=== PATIENT | male | born 1945 | race Caucasian/White ===

== ENCOUNTER 2016-10-12 10:08 | Inpatient (IN) | payer OTHER, MEDICARE ==
[~2016-10-12] VITALS: Ht 177.8 cm; Wt 77.2 kg
--- NOTE | 2016-10-12 13:25 | History and Physical ---
History & Physical Date of Service Oct 12, 2016. History & Physical H & P Dictated #[id number] Family Contact is [phone]
[2016-10-12] MEDS ORDERED: ONDANSETRON INJ 2 MG/ML 2 ML VIAL IV PRN (13:30)
[2016-10-12] MEDS ORDERED: ACETAMINOPHEN 325 MG TAB PO PRN (13:30)
--- NOTE | 2016-10-12 13:59 | HISTORY & PHYSICAL EXAMINATION ---
DATE OF ADMISSION: 10/12/2016 CHIEF COMPLAINT: My lung has collapsed. HISTORY OF PRESENT ILLNESS: This 71-year-old male who was transferred from [facility] at the request of Dr. Barrios of general surgery. The patient says that he has a partial collapse of his left lung. The patient says that the issue with his lung began approximately 2 weeks ago when he noted that he was more short of breath particularly with activity. He went to see Dr. Barrios, where the patient was found to have what he describes as a pneumothorax for which he had a chest tube placed. He said this was removed after approximately 24 hours. He followed up with Dr. Barrios 4 days ago and again there was concern about recurrent pneumothorax and the patient underwent what he describes as a thoracentesis and then the patient subsequently followed up with Dr. Barrios again today, where the patient underwent an x-ray that showed the patient had some fluid in the left pleural space with a small pneumothorax. For this reason, he was transferred to Dr. Connors to [facility] for thoracic surgery expertise. I visited with the patient at bedside and questioned him on a multitude of symptoms. There were no falls, head injuries, visual changes, tinnitus, vertigo, epistaxis or sore throat. He denies any neck pain. He says with activity he does not get chest pain. He does admit to some shortness of breath particularly with exertion after 50 yards of walking an incline. He denies any nausea, vomiting or diarrhea, but does note some issues with constipation. He says he did have a major abdominal surgery secondary to hernias with mesh implantation in July of 2016 and since that surgery, he has lost approximately 20 pounds. He denies any dysuria. He has no history of stroke or seizure. He denies anxiety or depression. He does have a history of DVT in the left lower extremity following a previous surgery. He was treated appropriately with anticoagulation and he also had an IVC filter in place. He no longer takes anticoagulation, but he does have an IVC filter in place. At the time of my exam, he is resting comfortably in bed. PAST MEDICAL HISTORY: 1. COPD. 2. Colon cancer. The patient says that he had a partial colectomy. He also had radiation therapy and chemotherapy, both of which concluded approximately 9 years ago. 3. History of left clavicle fracture that was treated conservatively. 4. History of right lower extremity DVT as noted above. PAST SURGICAL HISTORY: Includes: 1. Abdominal herniorrhaphy with mesh implantation in July of 2016. 2. Partial colectomy. 3. Most recent colonoscopy. The patient says that it was approximately 9 years ago and there were no signs of recurrent cancer. 4. History of liver lobe resection. 5. Left knee osteotomy. 6. Right cyst excision from his finger. 7. Eye cyst excision. 8. IVC filter placement. ALLERGIES: None. OUTPATIENT MEDICATIONS: Include Prilosec daily. SOCIAL HISTORY: The patient quit smoking 20 years ago, but did admit to smoking 20 years, less than 1 pack of cigarettes per day. He drinks alcohol only on weekends. FAMILY HISTORY: The patient says his mother had an unspecified type of skin cancer. REVIEW OF SYSTEMS: As described above. PHYSICAL EXAMINATION: GENERAL: The patient is alert. He is oriented x3. He is in no distress. HEENT: Head is atraumatic and normocephalic. Eyes: Pupils equal, round and reactive to light and accommodation. Extraocular motions are intact. Ears: Auditory acuity is grossly intact. Nose: Nasal patency was intact. Sinuses are nontender. Mouth is moist without exudates. NECK: Supple. There is no JVD. CARDIOVASCULAR: Revealed regular rate and rhythm. LUNGS: Clear to auscultation. There are no rales, rhonchi, wheezing or use of accessory muscles. ABDOMEN: Soft, nontender, and nondistended. EXTREMITIES: Revealed no cyanosis, clubbing, edema, or calf tenderness. NEUROLOGIC: Revealed cranial nerves II-XII are grossly intact. No focal deficits are noted. IMPRESSION: A 71-year-old male with recurrent hydropneumothorax. PLAN: The patient will be seen and evaluated by Dr. Connors as this is a recurrent problem. The patient will likely require surgical intervention. We will proceed by obtaining a CT scan of his chest to further delineate his thoracic cavity anatomy. Dr. Connors will evaluate the patient later today to determine the best course of surgical action. The patient denies any history of GERD, but nonetheless we will maintain him on proton pump inhibitor as he takes 1 at home. The patient is ambulatory, so for now will not use any chemical means of DVT prevention. We will place him on lovenox post-op. The patient will be a level 1 full code. MTDD
[2016-10-12 14:15] VITALS: BP 140/95; PULSE 104; TEMP 36.7; O2SAT 94; Ht 177.8 cm; Wt 77.2 kg
[2016-10-12] MEDS ORDERED: PATIENT'S ALLERGY INFO NEEDS ENTERED SCH (14:30)
--- NOTE | 2016-10-12 14:38 | DIAGNOSTIC IMAGING REPORT ---
CT SCAN OF THE CHEST WITHOUT IV CONTRAST CLINICAL HISTORY: Hydropneumothorax. COMPARISON STUDY: Chest x-ray dated 10/12/2016. TECHNIQUE: CT scan of the thorax was performed from the thoracic inlet to the upper abdomen. Images are reviewed in the axial, sagittal, and coronal planes. IV contrast was not administered for this examination as per the referring clinician. CT DOSE: 392.50 mGy.cm FINDINGS: Thyroid: Imaged portions of the thyroid gland are normal in size and attenuation. Thoracic aorta: There is mild atherosclerotic calcification of the thoracic aorta, which is normal in caliber and demonstrates standard 3-vessel arch anatomy. Heart: The heart is normal in size and without pericardial effusion. The coronary arteries are densely calcified. The pulmonary trunk is normal in caliber. Lungs and pleural spaces: Advanced emphysema is noted. The trachea and central airways are clear. There is a small left pleural effusion. No right pleural effusion is seen. A small left basilar pneumothorax is identified. This tracks anteriorly to the left apex. No right-sided pneumothorax is seen. There is no airspace consolidation typical for pneumonia. Bibasilar scarring and atelectasis are identified. Numerous small calcified granulomas are observed. There is subpleural reticulation seen throughout both lungs. Suture material and parenchymal scarring are suggested in the lingula. Air trapping is present both lung bases. Diffuse peribronchial thickening is observed. Mediastinum: There are scattered mediastinal lymph nodes. These not pathologically enlarged by size criteria. Calcified mediastinal lymph nodes are observed. Arabella: Not well assessed without IV contrast. Axillae: There is no axillary lymphadenopathy. Upper abdomen: There are postoperative changes from right hepatic lobe resection. There is compensatory hypertrophy of the left lobe. A 2.3 cm cyst is noted in the left lobe of liver on image #[id number]. The partially visualized kidneys demonstrate cortical atrophy. The visualized pancreas is atrophic. Scattered diverticula are noted in the partially imaged left colon. Skeletal structures: The skeletal structures are osteopenic. There is chronic posttraumatic deformity of the right clavicle. No lytic or blastic bony lesions are seen. IMPRESSION: 1. Advanced emphysema. 2. There is a small left basilar hydropneumothorax. The pneumothorax tracks anteriorly to the left apex. 3. There is no airspace consolidation typical for pneumonia. Diffuse peribronchial thickening suggests reactive airway disease. Clinical correlation will be required. 4. Numerous calcified granulomas are identified. 5. Suture material is suggested in the lingula. There is also evidence of right hepatic lobe resection. Correlation with the patient's surgical history will be required. 6. Additional changes as above. Electronically signed by: Kevin Herman M.D. 10/12/2016 2:37 PM Dictated Date/Time: 10/12/2016 2:29 PM
[2016-10-12 14:51] VITALS: BP 130/83; PULSE 95; TEMP 37; O2SAT 95
--- NOTE | 2016-10-12 16:03 | HISTORY & PHYSICAL EXAMINATION ---
DATE OF ADMISSION: 10/12/2016 REASON FOR ADMISSION: Recurrent left pneumothorax. HISTORY OF PRESENT ILLNESS: Mr. Arias is a 71-year-old male who has about a 29-hqds-vrme history of cigarette smoking who underwent an extensive repair of a ventral wall hernias at [place] in July 2016 and "suffered after that". He had an NG tube in for an ileus for about 2 weeks, was on oxygen. It is unclear to me whether he had simply a loss of domain in addition to his chronic obstructive pulmonary disease. He quit smoking many years ago. He states he can walk a mile, but walking an incline rapidly he will get out of breath. He had deep vein thrombosis of his left lower extremity following his operation and has IVC filter in place. The patient has a history of a colectomy for lung cancer and radiation therapy many years ago. The patient presented at [facility] with a left spontaneous pneumothorax and underwent chest tube insertion by Dr. Barrios. He responded this with no air leak and is removed only to return in about 10 days later with a left pneumothorax. Dr. Barrios performed an aspiration of this and then as the patient looks very good clinically asked him to come back to the Emergency Room today and he has a significant basilar left pneumothorax with some pleural fluid. I discussed this with Dr. Barrios and the patient was transferred up to [facility] for surgical intervention for this problem. In reviewing the patient's CT scan, he does have a loculated pneumothorax on the left with some pleural fluid. He also has significant left lower lobe of bullae which are large. He has no respiratory problems with this and actually is not on oxygen. He has good saturations. We are going to put him on oxygen, however. We had a long talk with the patient. We are going to proceed with a left thoracoscopy with the bleb resection and possible pleurectomy or talc pleurodesis tomorrow on 10/13/2016. The patient is agreeable. We discussed risks and benefits including prolonged air leak, lung injury, and other issues. For specific details of his history, please refer to Mr. Ferguson's H&P from earlier today. MTDD
[2016-10-12 23:10] VITALS: BP 129/79; PULSE 73; TEMP 36.4; O2SAT 95
[2016-10-13] VITALS (9 sets, daily range): BP systolic 100–138; BP diastolic 65–84; PULSE 59–102; TEMP 36.3–36.8; O2SAT 92–99
[2016-10-13] MEDS ORDERED: MIDAZOLAM HCL 1 MG/ML 2ML VIAL ONE (06:42)
[2016-10-13] MEDS ORDERED: FENTANYL CITRATE INJ 50 MCG/1 ML 2 ML VIAL ONE ×4 (06:42→10:10)
[2016-10-13] MEDS ORDERED: SODIUM CHLORIDE 0.9% PF 50 ML VIAL ONE (07:01)
[2016-10-13] MEDS ORDERED: BUPIVACAINE LIPOSOME 1/3% 266 MG/20 ML VIAL INFIL ONE (07:01)
--- NOTE | 2016-10-13 07:27 | History & Physical Bridge Note ---
H&P Re-Evaluation Bridge Note: I have examined the patient, reviewed the History & Physical and in the interval since the performance of the History & Physical I have noted the following changes of clinical significance: No changes noted
[2016-10-13] MEDS ORDERED: CEFAZOLIN IV 2,000 MG/60 ML D5W IV ONE (07:33)
[2016-10-13] MEDS ORDERED: LIDOCAINE HCL 2% 2 ML VIAL (20MG/ML) ONE (08:48)
[2016-10-13] MEDS ORDERED: ROCURONIUM BROMIDE 10 MG/ML 5 ML VIAL ONE (08:48)
[2016-10-13] MEDS ORDERED: PHENYLEPHRINE 100MCG/ML 5ML SYR ONE (08:48)
[2016-10-13] MEDS ORDERED: DEXAMETHASONE SOD INJ 4 MG/ML VIAL ONE (08:48)
[2016-10-13] MEDS ORDERED: PROPOFOL IV EMULSION 10 MG/ML 20 ML VIAL IV ONE (08:48)
[2016-10-13] MEDS: PANTOprazole SOD 40 MG TAB PO SCH (09:00)
[2016-10-13] MEDS ORDERED: FENTANYL CITRATE INJ 50 MCG/1 ML 2 ML VIAL IV PRN (09:15)
[2016-10-13] MEDS ORDERED: EpHEDrine SULFATE INJ 50 MG/ML AMP IV PRN (09:15)
[2016-10-13] MEDS ORDERED: HYDROmorphone INJ 1 MG/ML SYR IV PRN (09:15)
[2016-10-13] MEDS ORDERED: ONDANSETRON INJ 2 MG/ML 2 ML VIAL IV PRN ×3 (09:15→13:00)
[2016-10-13] MEDS ORDERED: PROMETHAZINE HCL INJ 6.25 MG in SODIUM CHLORIDE 0.9% 50ML 50 ML IV PRN (09:15)
[2016-10-13] MEDS ORDERED: ATROPINE SULFATE 0.1 MG/ML 5ML SYR IV PRN (09:15)
[2016-10-13] MEDS ORDERED: FLOSEAL HEMOSTATIC MATRIX 10ML TOP ONE (09:57)
[2016-10-13] MEDS ORDERED: D5W AND 1/2NSS 1,000 ML IV SCH (10:17)
[2016-10-13] MEDS ORDERED: ONDANSETRON INJ 2 MG/ML 2 ML VIAL ONE (10:34)
[2016-10-13] MEDS ORDERED: GLYCOPYRROLATE INJ 0.2 MG/ML VIAL ONE (10:34)
[2016-10-13] MEDS ORDERED: NEOSTIGMINE METHYLSULFATE 5 MG/5 ML SYR ONE (10:34)
--- NOTE | 2016-10-13 10:57 | DIAGNOSTIC IMAGING REPORT ---
CHEST ONE VIEW PORTABLE CLINICAL HISTORY: s/p bleb resection postoperative evaluation COMPARISON STUDY: 10/12/2016 FINDINGS: Status post left lower lung bleb resection. Left-sided chest tube. Atelectatic change of the mid lung regions bilaterally. Minimal left apical pneumothorax. Mild subcutaneous emphysematous change. IMPRESSION: Postoperative changes consistent with left basilar bleb resection. Midlung atelectatic change bilaterally. Very small left apical pneumothorax Electronically signed by: Trey Berry M.D. 10/13/2016 10:56 AM Dictated Date/Time: 10/13/2016 10:55 AM
--- NOTE | 2016-10-13 11:04 | OPERATIVE REPORT ---
DATE OF OPERATION: 10/13/2016 PREOPERATIVE DIAGNOSIS: Recurrent left pneumothorax. POSTOPERATIVE DIAGNOSES: 1. Recurrent left pneumothorax. 2. Marked bullous disease, left lower lobe. PROCEDURE: 1. Left thoracoscopy with lysis of adhesions. 2. Left lower lobe bullectomy x2. 3. Left upper lobe bullectomy x1 with repair of air leak. SURGEON: Dr. Connors. ASSISTANT MERCHANDISER: FLORENCIO Sarmiento. ANESTHESIA: General anesthesia with endotracheal intubation using double-lumen tube. SPECIFICS OF PROCEDURE: This is a very nice 71-year-old male who has a remote history of cigarette smoking, presented with a left pneumothorax, had a chest tube placed by Dr. Barrios done at [facility]. Chest tube was removed when there was no air leak, and the patient returned in less than a week with a recurrent left pneumothorax. This was aspirated as the patient had minimal symptoms and then Dr. Barrios saw him back in the Emergency Room yesterday at [facility]. He had persistent pneumothorax and he asked if I would evaluate him for possible thoracoscopy. The patient was transferred to my service yesterday. We had a long discussion about this. I did check a CT scan when he got here. He has some pleural fluid, has a large bulla. For this reason, we elected to proceed with a thoracoscopy with bullectomy. On 10/13/2016, the patient underwent an uncomplicated left thoracoscopy. There were some adhesions which were taken down meticulously. There were 2 large bullae on the left lower lobe, which were excised using reinforced MYNOR staplers. There was no air leak at these areas. There was also a bulla medially on the upper lobe, which was small and I excised this. There was an air leak and I repaired this by stapling it in place and this appeared to control the air leak, he had a very tiny one at the end of the case. I really did not see another air leak when I was inspecting all staple lines in the lung during the case. I used an Exparel block. He tolerated it well with negligible blood loss. PROCEDURE: The patient brought to the operating room and laid in supine position. General anesthesia induced and endotracheal intubation performed with a double-lumen tube. The patient was placed in right lateral decubitus position. Left chest was prepped and draped in the usual sterile fashion. After appropriate timeout had been called, prophylactic antibiotic had been given, I made a 10 mm incision one interspace below the scapular tip and anterior, a centimeter or so. A 5 mm scope was placed, it could be seen there were some adhesions but not in the area that we went in. Switched this over to a 12 mm trocar. I then placed 2 other trocars, one in about the 7th interspace in anterior line, another one about the 4th interspace in the mid axillary line. Using these, we then used retraction using a Harmonic scalpel, I took the adhesions down in the medial left upper lobe as well as the lateral left upper lobe. This was done without difficulty. We visualized the phrenic nerve. I took care to ensure there were no injuries to this. We really got into no bleeding. The bullae were huge and were on the lower lobe medially and laterally. There were 2 large bullae and these were stapled off with Endo-MYNOR staplers which were reinforced. After excising, these looked quite good and there was really no leaking from these suture staple lines. There was a small bulla in the medial left upper lobe which was excised. There was leaking with this. I had to re-staple along the staple line with a reinforced staple, but then it did not really appear that we had any air leak. 266 mg of Exparel mixed with 40 mL, so there was 60 mL total of solution. This was then injected from the 2nd to the 11th rib above the rib and put about 5 mL in each interspace. There was really no significant bleeding. I placed a chest tube in the anteroinferior thoracoscopy port and directed toward the apex and sutured in place with heavy silk suture. The muscle layers in all 3 ports were closed with heavy Vicryl suture and then 4-0 Monocryl was used to close these incisions. He tolerated it quite well. I attest to the content of the Intraoperative Record and any orders documented therein. Any exceptio ns are noted below.
--- NOTE | 2016-10-13 11:13 | Anesthesiology Progress Note ---
Anesthesia Post Op Note Date & Time Oct 13, 2016 at 11:13 Vital Signs Pain Intensity: 0 Vital Signs Past 12 Hours Date Time Temp Pulse Resp B/P Pulse Ox O2 Delivery O2 Flow Rate FiO2 10/13/16 11:10 76 22 114/80 98 Nasal Cannula 2 10/13/16 11:00 36.1 77 20 115/73 97 Nasal Cannula 2 10/13/16 10:50 75 16 111/72 100 Mask 10 10/13/16 10:40 78 16 122/78 100 Mask 10 10/13/16 10:30 36.0 84 14 125/82 98 Mask 10 10/13/16 07:11 36.5 79 20 123/98 96 10/13/16 06:51 36.6 68 16 138/84 94 Room Air 10/12/16 23:45 Room Air Notes Mental Status: alert / awake / arousable, participated in evaluation Pt Amnestic to Procedure: Yes Nausea / Vomiting: adequately controlled Pain: adequately controlled Airway Patency, RR, SpO2: stable & adequate BP & HR: stable & adequate Hydration State: stable & adequate Anesthetic Complications: no major complications apparent
[2016-10-13] MEDS: MoRPHine SULFATE 2 MG/ML CARP IV PRN ×4 (12:09→23:40)
[2016-10-13] MEDS: ACETAMINOPHEN IV 1,000 MG in EMPTY BAG 0 ML IV SCH ×2 (12:09→20:21)
--- NOTE | 2016-10-13 12:37 | Progress Note ---
Progress Note Date of Service Oct 13, 2016. Progress Note I was called to see patient on floor after transfer from PACU for L eye pain. On questioning the patient he claims that his eye is sore and he feels a foreign body sensation. However, on further questioning, he says that this started 2-3 days ago and is unchanged from preop. He has had no other anesthetics during this admission. Eyes were carefully clear and taped during the operation. Exam was unremarkable showing normal pupil, good mobility in the eye, no visible foreign body, and no conjunctival injection. While this could certainly be a corneal abrasion, the time course rules out his anesthetic today as the culprit. If the primary team feels this to be a corneal abrasion, appropriate treatment would consist of antibiotic ( erythromycin) ointment and a topical NSAID such as ketorolac can be considered. Local anesthetic drops can hinder healing and is not typically recommended. If there is any question regarding the diagnosis or assistance is needed on management, I would recommend an ophthalmology consultation.
[2016-10-13] MEDS: KETOROLAC TROMETHAMINE 30 MG/ML VIAL IV PRN (12:55)
--- NOTE | 2016-10-13 13:30 | Progress Note ---
Progress Note Date of Service Oct 13, 2016. Progress Note Called by RN that pt. complained of left eye pain. Anesthesia as ked to see for possible corneal abrasion (see separate note). Pt. seen at bedside. He notes that he feels as though he has an eyelash in his eye. He notes discomfort and burning and was worse when he awoke from surgery. Upon further questioning, he notes this has been present x 3 days. He denies rubbing or scratching his eye prior to the discomfort beginning. He also denies any situations where any foreign bodies could have cause this problem. He denies any diplopia, blurred vision, floaters, or visual loss. He denies any drainage. He has used OTC eye drops that have provided some relief. On exam his left eye is not red. No conjunctival injection noted. No obvious foreign bodies identified. There is no tearing or drainage. PERRLA, EOM intact. No nystagmus. Clinically this appears consistent with corneal abrasion. Will treat with erythromycin eye drops 5 x daily and monitor.
[2016-10-13] MEDS: METOCLOPRAMIDE HCL INJ 5 MG/ML 2 ML VIAL IV. SCH ×2 (14:19→21:36)
[2016-10-13] MEDS: CEFAZOLIN IV 2,000 MG in DEXTROSE 5% 50ML 100 ML IV SCH ×2 (15:25→23:39)
[2016-10-13] MEDS: TETRACAINE HCL 0.5% OP SOLN 15 ML BTL OP SCH (15:25)
[2016-10-13] MEDS: OXYCODONE HCL IR 5 MG TAB (IMMEDIATE RELEASE) PO PRN (18:40)
[2016-10-13] MEDS: DOCUSATE SODIUM 100 MG CAP PO SCH (20:22)
[2016-10-14] VITALS (10 sets, daily range): BP systolic 108–146; BP diastolic 70–87; PULSE 65–107; TEMP 36.4–37.1; O2SAT 68–96
[2016-10-14] MEDS: MoRPHine SULFATE 2 MG/ML CARP IV PRN ×10 (03:22→19:39)
[2016-10-14] MEDS: ACETAMINOPHEN IV 1,000 MG in EMPTY BAG 0 ML IV SCH ×2 (04:13→11:40)
[2016-10-14] MEDS: METOCLOPRAMIDE HCL INJ 5 MG/ML 2 ML VIAL IV. SCH (05:41)
--- NOTE | 2016-10-14 07:21 | DIAGNOSTIC IMAGING REPORT ---
CHEST ONE VIEW PORTABLE CLINICAL HISTORY: s/p bleb resection postoperative evaluation COMPARISON STUDY: 10/03/2016 FINDINGS: Expected postoperative changes. Unchanging position of the left hemithoracic chest tube. Subcutaneous emphysema minimally progressive. Small left apical pneumothorax unchanged. Basilar and right midlung infiltrative changes and/or atelectatic changes similar. IMPRESSION: Stable postoperative change. Small residual left apical pneumothorax. Subcutaneous emphysema slightly progressive Electronically signed by: Trey Berry M.D. 10/14/2016 7:20 AM Dictated Date/Time: 10/14/2016 7:18 AM
--- NOTE | 2016-10-14 08:08 | Anesthesiology Progress Note ---
Anesthesia Post Op Note Date & Time Oct 14, 2016 at 08:07 Vital Signs Pain Intensity: 0.0 Vital Signs Past 12 Hours Date Time Temp Pulse Resp B/P Pulse Ox O2 Delivery O2 Flow Rate FiO2 10/14/16 07:56 Room Air 10/14/16 03:20 94 Nasal Cannula 2.0 10/14/16 03:20 36.5 81 18 124/78 85 Room Air 10/13/16 23:30 Room Air 10/13/16 23:05 36.7 59 16 109/65 92 Room Air Notes Mental Status: alert / awake / arousable, participated in evaluation Pt Amnestic to Procedure: Yes Nausea / Vomiting: adequately controlled Pain: adequately controlled Airway Patency, RR, SpO2: stable & adequate BP & HR: stable & adequate Hydration State: stable & adequate Anesthetic Complications: no major complications apparent
[2016-10-14] MEDS: DOCUSATE SODIUM 100 MG CAP PO SCH ×2 (08:54→20:45)
[2016-10-14] MEDS: TETRACAINE HCL 0.5% OP SOLN 15 ML BTL OP SCH (08:54)
[2016-10-14] MEDS: PANTOprazole SOD 40 MG TAB PO SCH (08:54)
[2016-10-14] MEDS: OXYCODONE HCL IR 5 MG TAB (IMMEDIATE RELEASE) PO PRN ×2 (08:56→23:48)
[2016-10-14 09:34] LABS: PROTHROMBIN TIME (PATIENT) 11.1 SECONDS (9.0-12.0)
--- NOTE | 2016-10-14 10:23 | Anesthesiology Progress Note ---
Anesthesia Post Op Note Date & Time Oct 14, 2016 at 10:23 Vital Signs Vital Signs Past 12 Hours Date Time Temp Pulse Resp B/P Pulse Ox O2 Delivery O2 Flow Rate FiO2 10/14/16 09:16 96 Room Air 10/14/16 08:02 36.5 66 26 146/86 96 Room Air 10/14/16 07:56 Room Air 10/14/16 07:35 36.4 65 24 122/74 95 Nasal Cannula 2.0 10/14/16 03:20 94 Nasal Cannula 2.0 10/14/16 03:20 36.5 81 18 124/78 85 Room Air 10/13/16 23:30 Room Air 10/13/16 23:05 36.7 59 16 109/65 92 Room Air Notes Mental Status: alert / awake / arousable, participated in evaluation Pt Amnestic to Procedure: Yes Nausea / Vomiting: adequately controlled Pain: adequately controlled Airway Patency, RR, SpO2: stable & adequate BP & HR: stable & adequate Hydration State: stable & adequate Anesthetic Complications: no major complications apparent
[2016-10-14] MEDS: ENOXAPARIN 40 MG/0.4 ML SYR SQ SCH (11:23)
--- NOTE | 2016-10-14 11:53 | SURGERY PROGRESS NOTE ---
DATE: 10/14/2016 Mr. Arias was seen today on 10/14/2016, 1 day after I did a thoracoscopic bleb resection. I really do not see an air leak on him today. His chest x-ray today I thought looked fine, obviously that his bulla had been resected. He is on room air with a saturation of 96% this morning. I have instructed him how important it is for him to walk, breathe, use incentive spirometer and cough. I will probably remove his chest tube and let him go home tomorrow.
[2016-10-14] MEDS ORDERED: ACETAMINOPHEN 325 MG TAB PO PRN (12:30)
[2016-10-14] MEDS: KETOROLAC TROMETHAMINE 30 MG/ML VIAL IV PRN (21:21)
[2016-10-15 03:22] VITALS: PULSE 86; O2SAT 96
[2016-10-15] MEDS: OXYCODONE HCL IR 5 MG TAB (IMMEDIATE RELEASE) PO PRN (05:43)
[2016-10-15] MEDS: KETOROLAC TROMETHAMINE 30 MG/ML VIAL IV PRN (06:29)
[2016-10-15 06:43] VITALS: O2SAT 92
--- NOTE | 2016-10-15 07:14 | DIAGNOSTIC IMAGING REPORT ---
CHEST ONE VIEW PORTABLE CLINICAL HISTORY: S/P BLEB RESECTION postoperative evaluation COMPARISON STUDY: 10/14/2016 FINDINGS: Stable postoperative changes left hemithorax. Left-sided chest tube unchanged in position. Slight decrease in volume of ovarian small left apical pneumothorax. Maximum pleural separation currently is a 1.1 cm Subcutaneous emphysema similar IMPRESSION: Stable to slightly improved left hemithoracic postoperative change Electronically signed by: Trey Berry M.D. 10/15/2016 7:13 AM Dictated Date/Time: 10/15/2016 7:11 AM
[2016-10-15 07:15] VITALS: BP 122/81; PULSE 82; TEMP 36.8; O2SAT 92
[2016-10-15] MEDS ORDERED: OXYC-57 PO (08:02)
[2016-10-15] MEDS ORDERED: CLC100 PO (08:02)
--- NOTE | 2016-10-15 08:05 | Discharge Instructions ---
Discharge Instructions Date of Service Oct 15, 2016. Admission Reason for Admission: Pneumothorax Discharge Discharge Diagnosis / Problem: Pneumothorax Discharge Goals Goal(s): Decrease discomfort, Improve function, Learn about illness Activity Recommendations Activity Limitations: as noted below Shower/Bathe: may shower/bathe in 3 days 1. Do not fly until cleared to do so by Dr. Connors. 2. Do not drive if taking percocet. 3. You may remove dressing in 3 days and shower thereafter. No tube baths. . Instructions / Follow-Up Instructions / Follow-Up Office appointment with Dr. Connors in 1 week. Office will call with date and time of appointment. You will need a chest x-ray prior to appointment. Current Hospital Diet Patient's current hospital diet: Regular Diet Discharge Diet Recommended Diet: Regular Diet Procedures Procedures Performed: Left Thoracoscopy with Bullectomy Resection Pending Studies Studies pending at discharge: no Medical Emergencies . Who to Call and When: Medical Emergencies: If at any time you feel your situation is an emergency, please call 911 immediately. . Non-Emergent Contact Non-Emergency issues call your: Surgeon Call Non-Emergent contact if: you have a fever, your pain is not controlled, wound has increased drainage . "Provider Documentation" section prepared by Roberto Ferguson. VTE Core Measure Inpt VTE Proph given/why not?: Unfractionated heparin SQ
--- NOTE | 2016-10-15 08:14 | DIAGNOSTIC IMAGING REPORT ---
CHEST ONE VIEW PORTABLE CLINICAL HISTORY: chest tube removal postoperative evaluation COMPARISON STUDY: 10/15/2016 at 6:54 AM FINDINGS: Interval removal left-sided chest tube. Minimal residual left apical pneumothorax with a pleural separation of no more than 5 mm. Slight increased atelectatic change left base. Subcutaneous emphysema stable. Right lung is clear. IMPRESSION: Stable evaluation of the chest status post left-sided chest tube removal. Minimal residual left apical pneumothorax diminished in prominence from the prior study. Electronically signed by: Trey Berry M.D. 10/15/2016 8:12 AM Dictated Date/Time: 10/15/2016 8:11 AM
[2016-10-15] MEDS: DOCUSATE SODIUM 100 MG CAP PO SCH (09:28)
[2016-10-15] MEDS: TETRACAINE HCL 0.5% OP SOLN 15 ML BTL OP SCH (09:28)
[2016-10-15] MEDS: PANTOprazole SOD 40 MG TAB PO SCH (09:28)
[2016-10-15] MEDS: ENOXAPARIN 40 MG/0.4 ML SYR SQ SCH (09:29)
[2016-10-15 09:52] VITALS: BP 122/81; PULSE 82; TEMP 36.8; O2SAT 92
--- NOTE | 2016-10-23 11:56 | DISCHARGE SUMMARY ---
DISCHARGE DIAGNOSES: 1. Recurrent spontaneous right pneumothorax. 2. History of ventral wall hernias. 3. History of cigarette smoking. 4. History of deep vein thrombosis. 5. History of lung cancer. HOSPITAL COURSE: Mr. Arias is a 71-year-old male who underwent extensive repair of ventral hernias July 2016, had an NG tube and ileus, was on oxygen and eventually got over this up to the point where he could walk a mile. The patient developed acute shortness of breath, left chest pain and underwent insertion of a chest tube by Dr. Sophie peterson at [facility]. He was able to get the chest tube out in a timely fashion, discharge him home only to have him return 10 days later with recurrent left pneumothorax. Dr. Barrios asked if we would evaluate him for possible thoracoscopy. On 10/12/2016 the patient was transferred to my service. We got a CT scan which showed he did have some left pleural fluid, a loculated pneumothorax. He also had some large bulla. On 10/13/2016 I took the patient to the operating room and did an uncomplicated left thoracoscopy, took down some adhesions and wedged out 2 large bullae of the left lower lobe and a smaller one of the right upper lobe. He really had very little in the way of an air leak after surgery and tolerated it quite well. The second postop day on 10/15/2016 we removed his chest tube and discharged him home. Final pathology shows these to be benign blebs. He looks quite good from that perspective. I discharged him home, his incisions were clean. Discharge instructions were given. We will see him back next week in the office.
== END 2016-10-15 11:00 | disposition home or self-care (01) | DRG 164 ==
LOC: C.MSW 12:48
PROVIDERS: ADMIT Surgery; ATTEND Surgery
PROC: 0BBJ4ZZ Excision of Left Lower Lung Lobe, Percutaneous Endoscopic Approach (ICD-10-PCS; principal; 2016-10-13 07:30)
PROC: 0BQG4ZZ Repair Left Upper Lung Lobe, Percutaneous Endoscopic Approach (ICD-10-PCS; principal; 2016-10-13 07:30)
PROC: 0BBG4ZZ Excision of Left Upper Lung Lobe, Percutaneous Endoscopic Approach (ICD-10-PCS; principal; 2016-10-13 07:30)
PROC: 0BNG4ZZ Release Left Upper Lung Lobe, Percutaneous Endoscopic Approach (ICD-10-PCS; principal; 2016-10-13 07:30)
DX: J93.9 Pneumothorax, unspecified (principal); J94.8 Other specified pleural conditions; J43.9 Emphysema, unspecified; S05.02XA Injury of conjunctiva and corneal abrasion without foreign body, left eye, initial encounter; X58.XXXA Exposure to other specified factors, initial encounter; I25.10 Atherosclerotic heart disease of native coronary artery without angina pectoris; Z87.891 Personal history of nicotine dependence; Z86.718 Personal history of other venous thrombosis and embolism; Z79.899 Other long term (current) drug therapy

== ENCOUNTER → 2016-10-22 | Outpatient (CLI) | payer OTHER, MEDICARE ==
[~2016-10-22] MED LIST: CLC100 PO; HYDR-5688 PO; OXYC-57 PO
--- NOTE | 2016-10-22 13:12 | DIAGNOSTIC IMAGING REPORT ---
CHEST 2 VIEWS ROUTINE HISTORY: J93.9 [id number] COMPARISON: Chest 10/15/2016. FINDINGS: No change in the tiny left apical pneumothorax. Suture material within the left lung apex. Small left pleural effusion and left basilar densities have improved. Improvement in the left chest wall subcutaneous emphysema. Punctate calcified granuloma within the right lung. The heart is normal in size. Old right clavicle fracture. IMPRESSION: 1. Tiny left pneumothorax persists. 2. Small left pleural effusion and left basilar densities have improved. Electronically signed by: Corey Cartagena M.D. 10/22/2016 1:11 PM Dictated Date/Time: 10/22/2016 1:09 PM
== END | disposition home or self-care (01) ==
LOC: C.RAD1850 12:58
PROVIDERS: ATTEND Surgery
DX: J93.9 Pneumothorax, unspecified (principal)

== ENCOUNTER 2016-11-05 10:06 | Emergency (ER) | payer OTHER, MEDICARE ==
[~2016-11-05] VITALS: Ht 177.8 cm; Wt 80.0 kg
[~2016-11-05 10:06] MED LIST changes: -HYDR-5688 PO
[2016-11-05 10:32] VITALS: TEMP 36.7; Ht 177.8 cm; Wt 80.0 kg
[2016-11-05] MEDS ORDERED: HYDR-5688 PO (11:13)
[2016-11-05 11:55] LABS: BASO % 0.2 %; BASO ABS # 0.02 K/uL (0-0.2); COMPLETE YES; EOS % 2.8 %; HEMATOCRIT 40.2 % (42-52); IG% 0.4 %; LYMPH % 12.6 %; LYMPH ABS # 1.24 K/uL (1.2-3.4); MEAN CELL VOLUME 91.8 fL (80-100); MEAN CORPUSCULAR HEMOGLOBIN 31.5 pg (25-34); MEAN CORPUSCULAR HGB CONC 34.3 g/dl (32-36); MEAN PLATELET VOLUME 9.2 fL (7.4-10.4); PLATELET COUNT 252 K/uL (130-400); RED BLOOD COUNT 4.38 M/uL (4.7-6.1); WHITE BLOOD COUNT 9.88 K/uL (4.8-10.8)
--- NOTE | 2016-11-05 12:08 | DIAGNOSTIC IMAGING REPORT ---
CHEST 2 VIEWS ROUTINE HISTORY: s/p thoracoscopy eval for effusion/ptx COMPARISON: Chest 10/22/2016. FINDINGS: No definite pneumothorax. The heart is normal in size. Old, healed right-sided rib fracture. Trace right and small left pleural effusions remain unchanged. Mild interstitial thickening is likely chronic. Hazy appearance the left lung base likely due to to scarring. This is also stable. Peripheral interstitial thickening favors mild fibrotic change. There is suture material within the left lung. IMPRESSION: No definite pneumothorax identified. Left basilar density/effusion persists. Electronically signed by: Corey Cartagena M.D. 11/05/2016 12:06 PM Dictated Date/Time: 11/05/2016 12:03 PM
[2016-11-05 12:15] LABS: BUN/CREATININE RATIO 23.2 (10-20); CALCIUM 8.7 mg/dl (8.5-10.1); CREATININE 0.71 mg/dl (0.60-1.40)
--- NOTE | 2016-11-05 12:40 | DIAGNOSTIC IMAGING REPORT ---
EFFUSION-CHEST/MEDIASTINUM CLINICAL HISTORY: left thoracic region swelling, eval for fluid collection COMPARISON STUDY: Chest CT 10/12/2016. FINDINGS: Within the left posterior lateral chest wall there is an elongated complex fluid collection primarily tracking deep to the muscles. There is a small tract of this complex fluid collection which extends through the muscles and into the subcutaneous soft tissues. This may be related to a prior incision or chest tube tract. This measures 3.6 x 3.3 x 2.6 cm. IMPRESSION: Elongated complex fluid collection which is primarily deep to the muscles within the left posterior lateral chest wall. A small component of the complex fluid extends through the muscles and into the subcutaneous soft tissues. This may related to a prior incision or chest tube tract. This is nonspecific and favors a hematoma or seroma. An abscess could also a similar appearance in the appropriate clinical setting. Electronically signed by: Corey Cartagena M.D. 11/05/2016 12:38 PM Dictated Date/Time: 11/05/2016 12:33 PM
[2016-11-05 14:00] VITALS: BP 108/70; PULSE 82; O2SAT 95
--- NOTE | 2016-11-05 14:28 | EMERGENCY ROOM VISIT NOTE ---
History Report prepared by Reji: Madai Navarro Under the Supervision of: Dr. Lanre Long M.D. First contact with patient: 11:04 Chief Complaint: BACK PAIN Stated Complaint: SWELLING IN BACK,PAIN History of Present Illness The patient is a 71 year old male who presents to the Emergency Room with complaints of worsening left upper back swelling. The patient was admitted to the hospital on October 12 for a left sided recurrent pneumothorax. He had a thoracostomy and had 2 bullae removed on the left lower lobe and right in the right upper lobe. He had his chest tube removed and was discharged October 15. Since then, he has had some swelling and pain to the chest tube insertion site and thoracoscopy site. He has been using 2 Hydrocodone tablets every 6-8 hours , which does seem to help his pain significantly. The patient followed up with Dr. Connors 2 weeks ago in the office. He was not concerned about the swelling and pain to the area. Yesterday, the patient became worried because the swelling seemed to worsen. He has not noticed any drainage, redness or warmth around the area. His noticed that the area looked bruised. It does not seem as swollen as it did yesterday. Denies fever, shortness of breath, vomiting , abdominal pain, or other complaints. Source of History: patient Onset: a few weeks ago, worse yesterday Position: back (left upper) Quality: other (swollen) Timing: worsening Associated Symptoms: No SOB, No abdominal pain, No fevers, No vomiting Note: Other symptoms: pain at the site of swelling Review of Systems See HPI for pertinent positives & negatives. A total of 10 systems reviewed and were otherwise negative. Past Medical & Surgical Medical Problems: (1) Pneumothorax Family History No pertinent family history stated. Social History Smoking Status: Former Smoker Marital Status: Housing Status: lives with significant other Occupation Status: retired Current/Historical Medications Scheduled Docusate Sodium (Docusate Sodium), 100 MG PO BID Scheduled PRN Hydrocodone/Acetaminophen 5MG/325MG (Eckert 5MG/325MG), 1-2 TABLET PO Q8 PRN for Pain Allergies Coded Allergies: No Known Allergies (Unverified , 11/05/16) Physical Exam Vital Signs Date Time Temp Pulse Resp B/P Pulse Ox O2 Delivery O2 Flow Rate FiO2 11/05/16 12:00 77 17 112/75 96 Room Air 11/05/16 11:11 79 11/05/16 10:32 36.7 98 24 130/90 96 Room Air Physical Exam Constitutional: Vital signs reviewed. Eyes: Pupils are equal round reactive to light. Conjunctiva are noninjected. ENT: Pharynx is clear without erythema or exudate. Mucous membranes are moist. Neck supple without meningeal signs. Respiratory: Clear to auscultation bilaterally. Breath sounds are equal bilaterally. Cardiovascular: Regular rate and rhythm. No rubs or gallops. GI: Soft, nondistended and nontender. Bowel sounds are present. Musculoskeletal: There is 4x3.5 cm area of soft tissue swelling in the left posterior thoracic region with mild tenderness, indurated, no erythema, incision is intact. Well healed incision in the mid-axillary line on the left side without swelling or drainage. Integumentary: No cyanosis. Neurological: The patient is awake and alert. No focal deficits. Psychiatric: Normal affect. Medical Decision & Procedures ER Provider Diagnostic Interpretation: Radiology results as stated below per my review and the radiologist's interpretation: CHEST 2 VIEWS ROUTINE HISTORY: s/p thoracoscopy eval for effusion/ptx COMPARISON: Chest 10/22/2016. FINDINGS: No definite pneumothorax. The heart is normal in size. Old, healed right-sided rib fracture. Trace right and small left pleural effusions remain unchanged. Mild interstitial thickening is likely chronic. Hazy appearance the left lung base likely due to to scarring. This is also stable. Peripheral interstitial thickening favors mild fibrotic change. There is suture material within the left lung. IMPRESSION: No definite pneumothorax identified. Left basilar density/effusion persists. Electronically signed by: Corey Cartagena M.D. 11/05/2016 12:06 PM Dictated Date/Time: 11/05/2016 12:03 PM EFFUSION-CHEST/MEDIASTINUM CLINICAL HISTORY: left thoracic region swelling, eval for fluid collection COMPARISON STUDY: Chest CT 10/12/2016. FINDINGS: Within the left posterior lateral chest wall there is an elongated complex fluid collection primarily tracking deep to the muscles. There is a small tract of this complex fluid collection which extends through the muscles and into the subcutaneous soft tissues. This may be related to a prior incision or chest tube tract. This measures 3.6 x 3.3 x 2.6 cm. IMPRESSION: Elongated complex fluid collection which is primarily deep to the muscles within the left posterior lateral chest wall. A small component of the complex fluid extends through the muscles and into the subcutaneous soft tissues. This may related to a prior incision or chest tube tract. This is nonspecific and favors a hematoma or seroma. An abscess could also a similar appearance in the appropriate clinical setting. Electronically signed by: Corey Cartagena M.D. 11/05/2016 12:38 PM Dictated Date/Time: 11/05/2016 12:33 PM Laboratory Results 11/05/16 11:25 Red Blood Count 4.38, Mean Corpuscular Volume 91.8, Mean Corpuscular Hemoglobin 31.5, Mean Corpuscular Hemoglobin Concent 34.3, Mean Platelet Volume 9.2, Neutrophils (%) (Auto) 70.0, Lymphocytes (%) (Auto) 12.6, Monocytes (%) (Auto) 14.0, Eosinophils (%) (Auto) 2.8, Basophils (%) (Auto) 0.2, Neutrophils # (Auto ) 6.92, Lymphocytes # (Auto) 1.24, Monocytes # (Auto) 1.38, Eosinophils # (Auto ) 0.28, Basophils # (Auto) 0.02 11/05/16 11:25 Test 11/05/16 11:25 White Blood Count 9.88 K/uL (4.8-10.8) Red Blood Count 4.38 M/uL (4.7-6.1) Hemoglobin 13.8 g/dL (14.0-18.0) Hematocrit 40.2 % (42-52) Mean Corpuscular Volume 91.8 fL (80-100) Mean Corpuscular Hemoglobin 31.5 pg (25-34) Mean Corpuscular Hemoglobin Concent 34.3 g/dl (32-36) Platelet Count 252 K/uL (130-400) Mean Platelet Volume 9.2 fL (7.4-10.4) Neutrophils (%) (Auto) 70.0 % Lymphocytes (%) (Auto) 12.6 % Monocytes (%) (Auto) 14.0 % Eosinophils (%) (Auto) 2.8 % Basophils (%) (Auto) 0.2 % Neutrophils # (Auto) 6.92 K/uL (1.4-6.5) Lymphocytes # (Auto) 1.24 K/uL (1.2-3.4) Monocytes # (Auto) 1.38 K/uL (0.11-0.59) Eosinophils # (Auto) 0.28 K/uL (0-0.5) Basophils # (Auto) 0.02 K/uL (0-0.2) RDW Standard Deviation 44.8 fL (36.4-46.3) RDW Coefficient of Variation 13.3 % (11.5-14.5) Immature Granulocyte % (Auto) 0.4 % Immature Granulocyte # (Auto) 0.04 K/uL (0.00-0.02) Anion Gap 9.0 mmol/L (3-11) Est Creatinine Clear Calc Drug Dose 98.5 ml/min Estimated GFR () 109.4 Estimated GFR (Non- 94.4 BUN/Creatinine Ratio 23.2 (10-20) Calcium Level 8.7 mg/dl (8.5-10.1) Laboratory results as reviewed by me. ED Course 1108: The patient was evaluated in room C10. A complete history and physical exam was performed. 1245: I reassessed the patient and talked to him about test results. 1319: I discussed the case with Roberto Ferguson PA-C - Thoracic Surgery. He will come see the patient in the ED. Medical Decision This is a 71-year-old male who presents with swelling to his back with pain. Differential diagnosis includes seroma, hematoma, abscess, wound infection. I did perform a limited focused review of portions of the patient's old chart on the electronic medical record. He was admitted in September for a recurrent pneumothorax on the left side. He underwent a thoracoscopy and he had 2 bullae removed on the left lower lobe and one in the right upper lobe. His chest tube was removed and he was discharged on the . I did evaluate the patient as noted above. IV access was established. I did order and personally review the patient's chest x-ray as described above. He has a persistent left-sided effusion. I did order and review the patient's blood work as noted in the electronic medical record. His white blood cell count is not elevated. I did order an ultrasound of the thoracic region. There is a fluid collection which may represent a seroma, hematoma or abscess. I did discuss the test results with the patient. I did consult surgery. The [facility] who did come and evaluate the patient and discussed the case with Dr. Batista of surgery. They did not feel that the patient likely had an abscess in did not want to aspirate or incise the lesion or place the patient on antibiotics. The physician marketing assistant manager did give the patient a prescription for pain medicines and the patient will follow up on Wednesday with Dr. Connors. He was told to return should he have any worsening symptoms or develop any new symptoms such as fever, vomiting or redness to the area. Consults Time Called: 1245 Consulting Physician: Roberto Ferguson PA-C on account of Dr. Connors - Thoracic Surgery Impression Primary Impression: Fluid collection at surgical site Scribe Attestation The scribe's documentation has been prepared under my direct and personally reviewed by me in its entirety. I confirm that the note above accurately reflects all work, treatment, procedures, and medical decision making performed by me. Departure Information Dispostion Home / Self-Care Referrals Yamilka Neal D.O. (PCP) Patient Instructions My [facility] Problem Qualifiers Primary Impression: Fluid collection at surgical site Encounter type: initial encounter Qualified Codes: T88.8XXA - Other specified complications of surgical and medical care, not elsewhere classified, initial encounter
--- NOTE | 2016-11-05 14:30 | Medical Consult ---
Consultation Note Date of Service Nov 05, 2016. Consultation Note Consult Dictated #[id number]
--- NOTE | 2016-11-05 15:02 | CONSULTATION REPORT ---
DATE OF CONSULTATION: 11/05/2016 REASON FOR CONSULTATION: Swelling surgical incision. HISTORY OF PRESENT ILLNESS: This is a 71-year-old male, known to our service. He was admitted to [facility] on October 13 of this year secondary to recurrent pneumothorax. During the aforementioned admission, the patient was taken to the operating room on 10/13/2016, at which time he underwent a left video-assisted thoracoscopy with lysis of adhesions and the left lower lobe bullectomy x2 and the left upper lobe bullectomy x1. The patient had an uneventful postoperative course and was discharged home in stable condition on October 15. The patient had subsequently followed up with us in the office on October 22, which was postop day #10. The patient was doing well overall. He did not have any shortness of breath or significant pain. His incisions were all healing well. It should be noted that he did have some slight swelling of the posterior incision, but this was not of concern. There were no signs of infection when seen in the office. The patient says that since his office visit, he has had some gradually progressive pain and swelling at the aforementioned incision. He says it has gotten slightly worse over the past 2 days with more pain and more swelling. The patient denies any fevers or shakes, but he has had an occasional chill, but notes that several members of his family have had recent upper respiratory infections. Concerning other symptoms, he has not had any falls that would have affected this area. He denies any visual changes or sore throat. He denies any chest pain or shortness of breath. He denies any nausea, vomiting or diarrhea. He denies any dysuria. He does have a history of a DVT in the past. Upon presentation to the Emergency Department, the patient did have a chest x-ray performed that showed no evidence of pneumothorax. There is no evidence of pneumonia. His chest x-ray is very similar in appearance to his x-ray that he had performed on October 22 of his postoperative visit. Due to swelling of his posterior incision, an ultrasound of this area was performed that showed a 3.6 x 3.3 x 2.6 complex fluid collection. Interpreting radiologist felt that this could have been either a seroma, hematoma or abscess. The fluid collection that was commented on did extend somewhat through the muscles into the subcutaneous soft tissue. We have been asked to see the patient because of his recent surgery and incision. PAST MEDICAL HISTORY: Includes the followin. History of recurrent pneumothorax. 2. COPD. 3. History of colon cancer. 4. History of right lower extremity deep venous thrombosis. 5. Left clavicle fracture that was treated conservatively. PAST SURGICAL HISTORY: 1. Includes partial colectomy. 2. Liver lobectomy at the time of partial colectomy. 3. IVC filter placement. 4. Abdominal herniorrhaphy with mesh. 5. Colonoscopy. 6. History of left-sided chest tube placement. 7. Left knee osteotomy. 8. Eye cyst excision. 9. Right hand finger cyst excision. 10. Left video-assisted thoracoscopy with bleb resection as described above. ALLERGIES: None. OUTPATIENT MEDICATION REGIMEN: Includes the followin. Colace 100 mg twice daily. 2. Newport 5/325 as needed for pain. He takes 1-2 tablets every 8 hours. SOCIAL HISTORY: The patient currently does not smoke. FAMILY HISTORY: He does not know family history of premature coronary artery disease. DIAGNOSTIC DATA: In addition to the imaging noted above, he had a CBC, where white blood cell count was normal. Hemoglobin and hematocrit 13.8 and 40.2. Platelet count is 252,000. Chemistry profile showed that sodium, potassium, BUN and creatinine were all normal. PHYSICAL EXAMINATION: VITAL SIGNS: The patient is afebrile with temperature 36.9, pulse is 77 and regular, respirations are 17 and unlabored, blood pressure 112/75, and pulse ox 96% on room air. SKIN: Warm with good turgor. GENERAL: He is alert and he is oriented x3, in no distress. HEENT: Head is atraumatic and normocephalic. EYES: Pupils equal, round and reactive to light and accommodation. Extraocular motions are intact. EARS: Auditory acuity is grossly intact. NOSE: Nasal patency was intact. Sinuses are nontender. MOUTH: Moist without exudates. NECK: Supple. There is no JVD. CARDIOVASCULAR: Regular rate and rhythm. LUNGS: Revealed breath sounds present bilaterally. He was not using accessory muscles. ABDOMEN: Soft and nontender. The patient's chest wall was examined. There is an incision under the patient's left axilla that is well healed without swelling or erythema. He had an inferior anterior incision that was also well healed and well approximated without signs of swelling or infection. His posterior incision was approximated well. There was no drainage or erythema. The patient did have a palpable collection consistent with ultrasound findings. There is no fluctuance or purulence noted. EXTREMITIES: Revealed no cyanosis, clubbing or edema. NEUROLOGIC: Revealed no focal deficits. DIAGNOSTIC DATA: As noted above. IMPRESSION: A 71-year-old male status post left video-assisted thoracoscopy with concern for fluid collection at his posterior thorascopic incision. PLAN: I discussed with the patient possibly etiologies of this including abscess, seroma or hematoma. The patient is not septic from this. He has normal white count. He is afebrile, which goes against abscess. I have informed the patient that this could be a hematoma or seroma and we can try aspirating the area in question; however, we also discussed the risk of introducing infection to an already noninfected fluid collection. I have instructed to the patient that watchful waiting could be employed and we can try warm compresses as well as analgesics. He does have an appointment to us on 11/09/16 at 01:30 and I have encouraged to keep this appointment, at which time Dr. Connors will be able to evaluate this incision to decide on further management options. I did discuss with the patient that if he develops any worsening signs or symptoms, which include but are not limited to fevers, rigors, or diaphoresis or worsening pain or any purulent drainage noted from this incision that he should call our office immediately, so this can be addressed. He did express his understanding. I did provide the patient with a new prescription for Newport 5/325, which he will ultimately take 1-2 tablets every 8 hours as needed for pain and I have given him 20 pills with no refills. The patient expressed his understanding of the above. I did discuss with attending the Emergency Room physician. I addition, I have earlier discussed the case Dr. José Manuel Batista of general surgery. BROOKE
== END 2016-11-05 14:25 | disposition home or self-care (01) ==
LOC: C.EDB 10:10 → C.EDC 14:25
DX: T88.8XXA Other specified complications of surgical and medical care, not elsewhere classified, initial encounter (principal); X58.XXXA Exposure to other specified factors, initial encounter; Z87.891 Personal history of nicotine dependence

== ENCOUNTER → 2017-01-26 | Outpatient (CLI) | payer OTHER, MEDICARE ==
[~2017-01-26] MED LIST changes: +HYDR-5688 PO; -OXYC-57 PO
--- NOTE | 2017-01-26 10:56 | DIAGNOSTIC IMAGING REPORT ---
CHEST 2 VIEWS ROUTINE HISTORY: J93.9 [id number] COMPARISON: Chest 11/05/2016. FINDINGS: Suture material within the left lung is again noted. No pneumothorax identified. The heart is stable in size. Emphysema. A few punctate calcified granulomas within the right lung. No new focal lung consolidations. No evidence for pulmonary edema. Trace left pleural effusion has almost completely resolved. Left basilar densities of also improved. IMPRESSION: 1. Improvement in the left basilar densities and trace left pleural effusion. 2. No pneumothorax identified. Electronically signed by: Corey Cartagena M.D. 01/26/2017 10:55 AM Dictated Date/Time: 01/26/2017 10:53 AM
== END | disposition home or self-care (01) ==
LOC: C.RAD1850 10:35
PROVIDERS: ATTEND Physician Assistant
DX: J93.9 Pneumothorax, unspecified (principal); R91.8 Other nonspecific abnormal finding of lung field